=== PATIENT | male | born 1970 | race Caucasian/White ===

== ENCOUNTER 2017-09-05 12:19 | Emergency (ER) | payer OTHER ==
[2017-09-05 14:09] LABS: Protime INR 0.95
[2017-09-05] MEDS ORDERED: ONDANSETRON 4 MG/2 ML VIAL ONE (14:14)
[2017-09-05] MEDS ORDERED: FENTANYL CITR 100 MCG/2 ML ONE (14:14)
[2017-09-05] MEDS ORDERED: NA CHLORIDE 0.9% 1,000 ML ONE (14:14)
[2017-09-05 14:22] LABS: ALT/SGPT 41 U/L (12-78); AST/SGOT 23 U/L (15-37); Albumin 3.7 g/dL (3.4-5.0); Alkaline Phosphatase 101 U/L (45-117); BUN Blood Urea Nitrogen 21 mg/dL (7-18); Bicarbonate 34 mmol/L (21-32); Bilirubin Direct 0.1 mg/dL (0-0.2); Bilirubin Total 0.4 mg/dL (0.2-1.0); CKMB Creatine Kinase MB 3.3 ng/mL (0.3-3.6); Creatine Phosphokinase 163 U/L (39-308); Glucose Level 224 mg/dL (74-106); Lipase 84 U/L (73-393); NT PRO-BNP 36 pg/mL (<125); Potassium 4.2 mmol/L (3.5-5.1); Protein, Total 7.5 g/dL (6.4-8.2); Sodium Level 137 mmol/L (136-145)
--- NOTE | 2017-09-05 15:03 | RAD REPORT ---
EXAM DESCRIPTION: CT - Head C Spine Cap Octaviano Con - 09/05/2017 2:45 pm CLINICAL HISTORY: Trauma, head and neck injury. Chest, abdomen and pelvis pain. PAIN COMPARISON: No comparisons TECHNIQUE: CT head without contrast. CT cervical spine without contrast with coronal and sagittal reformatted images. CT chest, abdomen and pelvis with IV contrast (approximately 100 mL nonionic IV contrast) with hanks l and sagittal reformatted images of the spine. All CT scans are performed using dose optimization technique as appropriate and may include automated exposure control or mA/KV adjustment according to patient size. FINDINGS: CT HEAD WITHOUT CONTRAST: No intracranial hemorrhage, hydrocephalus or extra-axial fluid collection. No areas of brain edema o r midline shift. The paranasal sinuses and mastoids are clear. The calvarium is intact. CT CERVICAL SPINE WITHOUT CONTRAST: No fracture or subluxation. The prevertebral soft tissues are normal in thickness. CT CHEST, ABDOMEN, PELVIS WITH CONTRAST: The lungs are clear.No pneumothorax or pericardial/pleural fluid. No evidence of intra-abdominal visceral injury, free fluid or free air. No concerning pelvic findings. No fractures. IVC filter is noted. Hardware is present in the right acetabulum posteriorly. IMPRESSION: Negative for acute traumatic findings.
--- NOTE | 2017-09-05 15:04 | RAD REPORT ---
EXAM DESCRIPTION: RAD - Chest Single View - 09/05/2017 1:32 pm CLINICAL HISTORY: COUGH Chest pain. COMPARISON: CHEST SINGLE VIEW dated 07/13/2007 FINDINGS: Portable technique limits examination quality. The lungs are grossly clear. The heart is normal in size. No displaced fractures. IMPRESSION: No acute intrathoracic process suspected.
--- NOTE | 2017-09-05 15:10 | EDPHYS ---
Physician Documentation [facility] Name: Charlie Mobley Age: 47 yrs Sex: Male : 1970 Arrival Date: 09/05/2017 Time: 12:20 Bed 5 Private MD: Mu Sanchez ED Physician Maximus Cancino HPI: 09/05 13:06 This 47 yrs old Male presents to ER via Wheelchair with complaints of Chest ivory Pain. 13:06 The patient or guardian reports chest pain that is located primarily in the anterior ivory chest wall, left. Onset: 3 day(s) ago. The pain does not radiate. Associated signs and symptoms: The patient has no apparent associated signs or symptoms. The chest pain is described as sharp. Modifying factors: The symptoms are alleviated by the symptoms are aggravated by deep breath, movement, palpation of area, twisting torso. Severity of pain: At its worst the pain was moderate. Historical: - Allergies: 12:31 Morphine; aj1 - Home Meds: 12:31 blood pressure [Active]; diabetes pills [Active]; aj1 - PMHx: 12:31 Diabetes - NIDDM; Gout; Hypertension; aj1 - PSHx: 12:31 Knee surgery; aj1 - Immunization history:: Flu vaccine is up to date. - Social history:: Smoking status: Patient uses tobacco products, smokes one pack cigarettes per day. - Ebola Screening: : Patient denies travel to an Ebola-affected area in the 21 days before illness onset. - Family history:: not pertinent. ROS: 13:06 Constitutional: Negative for fever, chills, and weight loss, Eyes: Negative for injury, ivory pain, redness, and discharge, ENT: Negative for injury, pain, and discharge, Neck: Negative for injury, pain, and swelling, Cardiovascular: Negative for chest pain, palpitations, and edema, Abdomen/GI: Negative for abdominal pain, nausea, vomiting, diarrhea, and constipation, Back: Negative for injury and pain, : Negative for injury, bleeding, discharge, and swelling, MS/Extremity: Negative for injury and deformity, Skin: Negative for injury, rash, and discoloration, Neuro: Negative for headache, weakness, numbness, tingling, and seizure, Psych: Negative for depression, anxiety, suicide ideation, homicidal ideation, and hallucinations, Allergy/Immunology: Negative for hives, rash, and allergies, Endocrine: Negative for neck swelling, polydipsia, polyuria, polyphagia, and marked weight changes, Hematologic/Lymphatic: Negative for swollen nodes, abnormal bleeding, and unusual bruising. 13:06 Respiratory: Positive for pleurisy, of the anterior aspect of left upper chest, left lateral anterior chest, left lateral posterior chest, left nipple and left breast, shortness of breath. Exam: 13:06 Constitutional: This is a well developed, well nourished patient who is awake, alert, ivory and in no acute distress. Head/Face: Normocephalic, atraumatic. Eyes: Pupils equal round and reactive to light, extra-ocular motions intact. Lids and lashes normal. Conjunctiva and sclera are non-icteric and not injected. Cornea within normal limits. Periorbital areas with no swelling, redness, or edema. ENT: Nares patent. No nasal discharge, no septal abnormalities noted. Tympanic membranes are normal and external auditory canals are clear. Oropharynx with no redness, swelling, or masses, exudates, or evidence of obstruction, uvula midline. Mucous membranes moist. Neck: Trachea midline, no thyromegaly or masses palpated, and no cervical lymphadenopathy. Supple, full range of motion without nuchal rigidity, or vertebral point tenderness. No Meningismus. Chest/axilla: Normal chest wall appearance and motion. Nontender with no deformity. No lesions are appreciated. Cardiovascular: Regular rate and rhythm with a normal S1 and S2. No gallops, murmurs, or rubs. Normal PMI, no JVD. No pulse deficits. Abdomen/GI: Soft, non-tender, with normal bowel sounds. No distension or tympany. No guarding or rebound. No evidence of tenderness throughout. Back: No spinal tenderness. No costovertebral tenderness. Full range of motion. Male : Normal genitalia with no discharge or lesions. Skin: Warm, dry with normal turgor. Normal color with no rashes, no lesions, and no evidence of cellulitis. MS/ Extremity: Pulses equal, no cyanosis. Neurovascular intact. Full, normal range of motion. Neuro: Awake and alert, GCS 15, oriented to person, place, time, and situation. Cranial nerves II-XII grossly intact. Motor strength 5/5 in all extremities. Sensory grossly intact. Cerebellar exam normal. Normal gait. Psych: Awake, alert, with orientation to person, place and time. Behavior, mood, and affect are within normal limits. 13:06 Respiratory: the patient does not display signs of respiratory distress, Respirations: normal, Breath sounds: are clear throughout, Respiratory rate: 24 Vital Signs: 12:31 BP 122 / 69; Pulse 114; Resp 24; Pulse Ox 95% on R/A; Weight 185.52 kg (R); Height 6 aj1 ft. 3 in. (190.50 cm) (R); Pain 10/10; 12:31 Body Mass Index 51.12 (185.52 kg, 190.50 cm) aj1 MDM: 12:32 Patient medically screened. [facility] 13:06 Data reviewed: vital signs, nurses notes, lab test result(s), EKG, radiologic studies, [facility] CT scan, plain films. 09/05 13:06 Order name: Basic Metabolic Panel; Complete Time: 14:36 [facility] 09/05 13:06 Order name: CBC with Diff [facility] 09/05 13:06 Order name: Ckmb; Complete Time: 14:36 [facility] 09/05 13:06 Order name: CPK; Complete Time: 14:36 [facility] 09/05 13:06 Order name: LFT's; Complete Time: 14:36 [facility] 09/05 13:06 Order name: Magnesium; Complete Time: 14:36 ivory 09/05 13:06 Order name: NT PRO-BNP; Complete Time: 14:36 [facility] 09/05 13:06 Order name: PT-INR; Complete Time: 14:36 [facility] 09/05 13:06 Order name: Ptt, Activated; Complete Time: 14:36 [facility] 09/05 13:06 Order name: Troponin (emerg Dept Use Only); Complete Time: 14:36 [facility] 09/05 13:06 Order name: XRAY Chest (1 view); Complete Time: 15:09 [facility] 09/05 13:06 Order name: Lipase; Complete Time: 14:36 [facility] 09/05 13:06 Order name: CT Traumagram (Head C Spine CAP W Con); Complete Time: 15:09 09/05 13:33 Order name: INCENTIVE SPIROMETRY [facility] 09/05 13:06 Order name: EKG; Complete Time: 13:07 [facility] 09/05 13:06 Order name: Cardiac monitoring; Complete Time: 14:18 [facility] 09/05 13:06 Order name: EKG - Nurse/Tech; Complete Time: 14: [facility] 09/05 13:06 Order name: IV Saline Lock; Complete Time: : [facility] 09/05 13:06 Order name: Labs collected and sent; Complete Time: : [facility] 09/05 13:06 Order name: O2 Per Protocol; Complete Time: : [facility] 09/05 13:06 Order name: O2 Sat Monitoring; Complete Time: : [facility] Administered Medications: 14:17 Drug: fentaNYL (PF) 50 mcg Route: IVP; Site: right antecubital; ph 15:30 Follow up: Response: No adverse reaction ph 14:17 Drug: Zofran 4 mg Route: IVP; Site: right antecubital; ph 15:30 Follow up: Response: No adverse reaction ph 14:18 Drug: NS 0.9% 1000 ml Route: IV; Rate: 1 bolus; Site: right antecubital; ph 19:36 Follow up: Response: No adverse reaction; IV Status: Completed infusion ph Disposition: 09/05/17 15:10 Discharged to Home. Impression: Chest pain, unspecified - wall, Fall due to bumping against object, Type 2 diabetes mellitus, Obesity, unspecified. - Condition is Stable. - Discharge Instructions: Chest Wall Pain, Fall Prevention in the Home, Chest Wall Pain, [id number], Fall Prevention in the Home, Rguz-jh-Laul. - Prescriptions for Ibuprofen 600 mg Oral Tablet - take 1 tablet by ORAL route every 6 hours As needed take with food; 2 tablet. Tylenol- Codeine #3 300-30 mg Oral Tablet - take 2 tablet by ORAL route every 6 hours As needed; 30 tablet. - Medication Reconciliation Form, Thank You Letter, Antibiotic Education, Prescription Opioid Use form. - Follow up: Mu Sanchez; When: 2 - 3 days; Reason: Recheck today's complaints, Continuance of care, Re-evaluation by your physician. Follow up: Jeremiah Jones; When: 2 - 3 days; Reason: Recheck today's complaints, Continuance of care, Re-evaluation by your physician. - Problem is new. - Symptoms have improved. Signatures: Dispatcher [employer] Martine Tejada RN RN aj1 Maximus Cancino MD MD cha Hall, Patricia RN RN ph Corrections: (The following items were deleted from the chart) 15:31 15:10 09/05/2017 15:10 Discharged to Home. Impression: Chest pain, unspecified - wall; ph Fall due to bumping against object; Type 2 diabetes mellitus; Obesity, unspecified. Condition is Stable. Discharge Instructions: Chest Wall Pain, Fall Prevention in the Home, Chest Wall Pain, Cgoo-ah-Rxoy, Fall Prevention in the Home, Ejoc-th-Ucsj. Prescriptions for Ibuprofen 600 mg Oral Tablet - take 1 tablet by ORAL route every 6 hours As needed take with food; 2 tablet, Tylenol-Codeine #3 300-30 mg Oral Tablet - take 2 tablet by ORAL route every 6 hours As needed; 30 tablet. and Forms are Medication Reconciliation Form, Thank You Letter, Antibiotic Education, Prescription Opioid Use. Follow up: Mu Sanchez; When: 2 - 3 days; Reason: Recheck today's complaints, Continuance of care, Re-evaluation by your physician. Follow up: Jeremiah Jones; When: 2 - 3 days; Reason: Recheck today's complaints, Continuance of care, Re-evaluation by your physician. Problem is new. Symptoms have improved. ivory
--- NOTE | 2017-09-05 15:10 | ER ---
Nurse's Notes [facility] Name: Charlie Mobley Age: 47 yrs Sex: Male : 1970 Arrival Date: 09/05/2017 Time: 12:20 Bed 5 Private MD: Mu Sanchez Diagnosis: Chest pain, unspecified-wall;Fall due to bumping against object;Type 2 diabetes mellitus;Obesity, unspecified Presentation: 09/05 12:26 Presenting complaint: Patient states: "Friday I fell on my porch, and hit the aj1 handrail and I thought it was just some cracked ribs. I woke up this morning and I just don't feel right." Reports pain directly under left pectoral area, shortness of breath, palpitations. Transition of care: patient was not received from another setting of care. Onset of symptoms was September 03, 2017. Risk Assessment: Do you want to hurt yourself or someone else? Patient reports no desire to harm self or others. Initial Sepsis Screen: Does the patient meet any 2 criteria? RR > 20 per min. HR > 90 bpm. Yes Does the patient have a suspected source of infection? No. Patient's initial sepsis screen is negative. Care prior to arrival: None. 12:26 Method Of Arrival: Wheelchair aj1 12:26 Acuity: [place] 3 aj1 Triage Assessment: 12:31 General: Appears uncomfortable, Behavior is calm, cooperative, appropriate for age. aj1 Pain: Complains of pain in diaphragm Pain does not radiate. Pain currently is 10 out of 10 on a pain scale. Neuro: Level of Consciousness is awake, alert, obeys commands. Cardiovascular: Reports chest pain, palpitations, shortness of breath. Historical: - Allergies: 12:31 Morphine; aj1 - Home Meds: 12:31 blood pressure [Active]; diabetes pills [Active]; aj1 - PMHx: 12:31 Diabetes - NIDDM; Gout; Hypertension; aj1 - PSHx: 12:31 Knee surgery; aj1 - Immunization history:: Flu vaccine is up to date. - Social history:: Smoking status: Patient uses tobacco products, smokes one pack cigarettes per day. - Ebola Screening: : Patient denies travel to an Ebola-affected area in the 21 days before illness onset. - Family history:: not pertinent. Screenin:00 Abuse screen: Denies threats or abuse. Denies injuries from another. Nutritional ph screening: No deficits noted. Tuberculosis screening: No symptoms or risk factors identified. Fall Risk None identified. Assessment: 13:00 General: Appears in no apparent distress. uncomfortable, obese, well groomed, Behavior ph is calm, cooperative, appropriate for age. Pain: Complains of pain in left lateral anterior chest and left breast Pain began 2-3 days ago. Neuro: Level of Consciousness is awake, alert, obeys commands, Oriented to person, place, time, situation. Cardiovascular: Reports chest pain, shortness of breath, Denies nausea, syncope, vomiting. Respiratory: Reports shortness of breath at rest pain with cough pain with movement pain with respiration Airway is patent Respiratory effort is even, unlabored, Respiratory pattern is regular, symmetrical, Breath sounds are clear bilaterally. GI: No signs and/or symptoms were reported involving the gastrointestinal system. Derm: Skin is intact, is healthy with good turgor, Skin is pink, warm \\T\\ dry. Musculoskeletal: Circulation, motion, and sensation intact. Range of motion: intact in all extremities. 14:00 Reassessment: Patient appears in no apparent distress at this time. Patient and/or ph family updated on plan of care and expected duration. Pain level reassessed. Patient is alert, oriented x 3, equal unlabored respirations, skin warm/dry/pink. 15:30 Reassessment: Patient appears in no apparent distress at this time. Patient and/or ph family updated on plan of care and expected duration. Pain level reassessed. Patient is alert, oriented x 3, equal unlabored respirations, skin warm/dry/pink. Pt instructed on use of incentive spirometer and d/c home w/ family. Vital Signs: 12:31 BP 122 / 69; Pulse 114; Resp 24; Pulse Ox 95% on R/A; Weight 185.52 kg (R); Height 6 aj1 ft. 3 in. (190.50 cm) (R); Pain 10/10; 12:31 Body Mass Index 51.12 (185.52 kg, 190.50 cm) aj1 ED Course: 12:20 Patient arrived in ED. as 12:20 Mu Sanchez is Private Physician. as 12:30 Triage completed. aj1 12:31 Arm band placed on Patient placed in an exam room. aj1 12:32 Maximus Cancino MD is Attending Physician. ivory 13:00 Patient has correct armband on for positive identification. Placed in gown. Bed in low ph position. Call light in reach. Side rails up X 1. slat basket maker helper on. Pulse ox on. NIBP on. Warm blanket given. 13:00 Inserted saline lock: 20 gauge in right antecubital area, using aseptic technique. ag Blood collected. 13:29 X-ray completed. Portable x-ray completed in exam room. Patient tolerated procedure jb2 well. 13:32 XRAY Chest (1 view) In Process Unspecified. EDMS 14:03 Radiology exam delayed due to lab results not completed at this time. (BUN/Creatinine). 14:05 Belia Canales, RN is Primary Nurse. ph 14:17 Radiology exam delayed due to lab results not completed at this time. (BUN/Creatinine). nj 14:[address] via stretcher. sj 14:45 CT Traumagram (Head C Spine CAP W Con) In Process Unspecified. EDMS 15:10 Mu Sanchez is Referral Physician. ivory 15:10 Jeremiah Jones MD is Referral Physician. ivory 15:30 No provider procedures requiring assistance completed. IV discontinued, intact, ph bleeding controlled, No redness/swelling at site. Pressure dressing applied. Patient maintains SpO2 saturation greater than 95% on room air. Administered Medications: 14:17 Drug: fentaNYL (PF) 50 mcg Route: IVP; Site: right antecubital; ph 15:30 Follow up: Response: No adverse reaction ph 14:17 Drug: Zofran 4 mg Route: IVP; Site: right antecubital; ph 15:30 Follow up: Response: No adverse reaction ph 14:18 Drug: NS 0.9% 1000 ml Route: IV; Rate: 1 bolus; Site: right antecubital; ph 19:36 Follow up: Response: No adverse reaction; IV Status: Completed infusion ph Outcome: 15:10 Discharge ordered by . ivory 15:30 Discharged to home ambulatory, with family. ph 15:30 Condition: good 15:30 Discharge instructions given to patient, Instructed on discharge instructions, follow up and referral plans. medication usage, Demonstrated understanding of instructions, follow-up care, medications, Prescriptions given X 2. 15:31 Patient left the ED. ph Signatures: Dispatcher [employer] Martine Tejada, KOREY RN rosa m1 Maximus Cancino MD MD cha Buechter, Fernando Pina, Mckayla Bradley, Belia Heath, KOREY RN Reg, Olga Escobedo, Scottie sanches
[2017-09-05 15:39] VITALS: BP 122/69; O2SAT 95
[2017-09-05 16:16] LABS: Absolute Lymphocytes (CBC) 1.2 K/uL (0.7-4.9); Absolute Monocytes 0.8 K/uL (0.1-1.3); Absolute Neutrophil 5.4 K/uL (1.8-8.0); Basophils % 0.3 % (0-1.3); Eosinophils % 1.2 % (0-4.4); Hematocrit 42.2 % (39.6-49.0); Lymphocytes % 16.5 % (15.3-44.8); MCH 31.5 pg (27.0-35.0); MCV 92.6 fL (80-100); Monocytes % 10.2 % (3.3-12.3); RBC Red Blood Cell Count 4.56 M/uL (4.33-5.43)
--- NOTE | 2017-09-05 18:08 | EKG ---
Test Date: 2017-09-05 Test Time: 12:36:49 Security Services Manager: CHRISTIAN MEASUREMENT RESULTS: Intervals: Rate: 117 [place]: 176 QRSD: 156 QT: 336 QTc: 468 [place]: P: 70 NJ: 176 QRS: 97 T: 42 INTERPRETIVE STATEMENTS: Sinus tachycardia Right bundle branch block Septal infarct, age undetermined Abnormal ECG Compared to ECG 09/21/2014 16:47:27 Myocardial infarct finding now present Electronically Signed On 09-05-17 18:06:44 CDT by Charlie Doss
== END 2017-09-05 15:31 | disposition home or self-care (01) ==
LOC: ER 12:19
DX: R07.9 Chest pain, unspecified (principal); W01.198A Fall on same level from slipping, tripping and stumbling with subsequent striking against other object, initial encounter; Y93.01 Activity, walking, marching and hiking; Y92.018 Other place in single-family (private) house as the place of occurrence of the external cause; Z88.5 Allergy status to narcotic agent; F17.210 Nicotine dependence, cigarettes, uncomplicated; E11.9 Type 2 diabetes mellitus without complications; Z79.84 Long term (current) use of oral hypoglycemic drugs; I10 Essential (primary) hypertension; E66.9 Obesity, unspecified; Z68.43 Body mass index [BMI] 50.0-59.9, adult
CPT/HCPCS: 36415; 70450; 71045; 71260; 72125; 74177; 80048; 80076; 82550; 82553; 83690; 83735; 83880; 84484; 85025; 85610; 85730; 93005; 96361; 96374; 96375; 99285; J2405; J3010; J7030; Q9967

== ENCOUNTER 2018-08-11 08:42 | Day surgery (SDC) | payer OTHER ==
[2018-08-10 17:30] LABS: Absolute Lymphocytes (CBC) 2.2 K/uL (0.7-4.9); Basophils % 0.6 % (0-1.3); Eosinophils % 1.5 % (0-4.4); Hematocrit 48.1 % (39.6-49.0); Lymphocytes % 24.4 % (15.3-44.8); MPV 9.3 fL (7.6-11.3); RBC Red Blood Cell Count 5.29 M/uL (4.33-5.43)
[2018-08-10 17:43] LABS: Potassium 4.2 mmol/L (3.5-5.1)
--- NOTE | 2018-08-10 18:15 | RAD REPORT ---
EXAM DESCRIPTION: John Bess (2 Views)08/10/2018 6:03 pm CLINICAL HISTORY: Preop for cholecystectomy. Abdominal pain COMPARISON: August 2017 FINDINGS: The lungs appear clear of acute infiltrate. The heart is mildly enlarged IMPRESSION: No acute abnormalities displayed
--- NOTE | 2018-08-10 19:40 | EKG ---
Test Date: 2018-08-10 Test Time: 17:28:57 Fire Systems Inspector: [place] MEASUREMENT RESULTS: Intervals: Rate: 76 FL: 192 QRSD: 160 QT: 414 QTc: 465 [place]: P: 49 FL: 192 QRS: 118 T: 44 INTERPRETIVE STATEMENTS: Normal sinus rhythm Right bundle branch block Septal infarct, age undetermined Abnormal ECG Compared to ECG 09/05/2017 12:36:49 Sinus tachycardia no longer present Myocardial infarct finding still present Electronically Signed On 08-10-18 19:40:14 CDT by Zeeshan Frazier
[2018-08-11] MEDS ORDERED: NA CHLORIDE 0.9% 1,000 ML ONE ×2 (09:27→11:59)
[2018-08-11] MEDS ORDERED: CEFAZOLIN/SWI 1gm 1 GM/10 ML SYR ONE (09:28)
[2018-08-11] MEDS ORDERED: ROCURONIUM 50 MG/5 ML VIAL IV ONE (10:28)
[2018-08-11] MEDS ORDERED: PROPOFOL 200 MG/20 ML VIAL IV ONE (10:28)
[2018-08-11] MEDS ORDERED: GLYCOPYRROLATE 0.2 MG/ML SYR ONE (10:29)
[2018-08-11] MEDS ORDERED: LIDOCAINE 2% MPF 5 ML VIAL ONE (10:30)
[2018-08-11] MEDS ORDERED: FENTANYL CITR 250 MCG/5 ML ONE (10:30)
[2018-08-11] MEDS ORDERED: ONDANSETRON 4 MG/2 ML VIAL ONE (10:34)
[2018-08-11] MEDS ORDERED: SUCCINYLCHOLINE 20 MG/ML (10 ML) IV ONE (11:07)
[2018-08-11] MEDS ORDERED: MIDAZOLAM HCL 2 MG/2 ML INJ ONE ×2 (11:07→12:27)
[2018-08-11] MEDS ORDERED: CEFAZOLIN SODIUM 1 GM/VIAL ONE (11:45)
[2018-08-11] MEDS ORDERED: NEOSTIGMINE 1 MG/ML -10 ML VIAL ONE (12:02)
[2018-08-11] MEDS ORDERED: KETOROLAC 30 MG/ML INJ ONE (12:03)
[2018-08-11] MEDS: HYDROMORPHONE HCL 2 MG/ML inj ONE ×4 (12:40→12:55)
[2018-08-11] MEDS: HYDROMORPHONE HCL 1 MG/ML INJ ONE ×2 (13:00→13:07)
[2018-08-11] MEDS ORDERED: PROMETHAZINE 25 MG/ML VIAL ONE (13:03)
--- NOTE | 2018-08-11 20:34 | OP ---
Date of Procedure: 08/11/2018 Surgeon: Jeremiah Jones MD Preoperative Diagnoses: Umbilical hernia. Acute appendicitis. Bilateral inguinal hernias. Postoperative Diagnoses: Umbilical hernia. Acute appendicitis. Bilateral inguinal hernias. Procedures: Laparoscopic appendectomy and open repair of a tender umbilical hernia. Anesthesia: General plus local. Findings: Acute appendicitis and hernia. Indications: This is the case of a 47-year-old patient, with initial situation, he has bilateral ing uinal hernias, umbilical hernias. He said lifting something he hurt the right side and then when we did the CT scan to look for the hernias, we also found patient has appendicitis. Pros and cons discu ssed with the patient. We decided to do this in stages. We going to do today the appendix and the u mbilical hernia. Not the inguinal hernias because they may require mesh and may get contaminated wit h the appendicitis, so he understood, also the importance of losing weight, signed the consent. The benefits, alternatives, and risks of appendectomy and hernia repair fully explained to the patient, w hich include but are not limited to infection, bleeding, damage to adjacent structures, anesthesia co mplication, negative appendix, RI, and even . He also understands this may not relieve any symp toms. He might need more than one surgical intervention. He understood, signed a consent. Description Of Procedure: The patient was brought to the operating room, placed in supine position. Anesthesia was done without complication. Abdominal area was prepped and draped in a sterile fashio n. Local anesthesia was applied in the umbilical region. Incision was carried down. Hernia was fou nd with incarcerated omentum. Carefully reduced into the abdominal cavity. Hernia sac was removed. The fascial edges were opened to allow the Boom trocars to come in. We placed Vicryl #1 inside th e fascia. Boom trocar was carefully introduced. Pneumoperitoneum was obtained. We directed our a ttention to the right lower quadrant and indeed patient has inflamed appendix. Yes, he has umbilical hernia. Yes, he has small inguinal hernias but the appendix is retrocecal with some adhesions attac hed to it, not allowing dissection of that without using the help of LigaSure. So, when we put 2 mor e 5 mm in the suprapubic and left lower quadrant under direct visualization, we were able to remove t he adhesions in the right lower quadrant using a LigaSure. Then, we noticed the appendix to be infla med, partially retrocecal, so the appendix had to be mobilized. The base of the appendix seems to be spared from this inflammation, so we created a window in the base of the appendix, transected that w ith an Endo RAJAN 45 mm 3.5, and the mesoappendix with an Endo RAJAN 45 mm 2.5. Appendix removed from ab dominal cavity using an EndoCatch through umbilical incision. Irrigation was done. Hemostasis was o btained with the help of LigaSure and hemoclips. The area was irrigated until clean. No bowel leak. No bleeding. At that moment, I proceeded to remove the trocars under direct vision. Before that, we looked at the area of the inguinal region. There are some small hernias present there, but at thi s moment, there is no incarceration of any intestines. So, we removed the trocars under direct visio n. Deflated the pneumoperitoneum, closed the fascia with #1 Vicryl. Irrigated subcutaneous tissue, closed it with 3-0 chromic and the skin with bakari. Sponge count and instrument counts were correc t. The patient tolerated the procedure well. The patient was sent to recovery in stable condition. RITESH/BARRIE Voice ID: [id number] Report ID: [id number]
--- NOTE | 2018-08-11 20:37 | DS ---
Date of Discharge: 08/11/2018 Diagnoses: Acute appendicitis. Umbilical hernia. Procedures: Laparoscopic appendectomy, open repair of umbilical hernia. Disposition: Home. Discharge Instruction: Activity as tolerated. No heavy lifting. Follow up in my office in 1 week. Call for appointment [phone]. Keep area dry for 48 hours, then may shower. Medication includes Ci pro 500 p.o. q.12, Flagyl 500 p.o. q.6, and Tylenol #3 q.4 hours p.r.n. pain. The patient, whenever it is clinically possible, then he is going to have the hernias repair on the inguinal region. RITESH/BARRIE Voice ID: [id number] Report ID: [id number]
--- NOTE | 2018-08-11 22:29 | HP ---
Date of Admission: 08/11/2018 Diagnoses: Acute appendicitis, bilateral inguinal hernias, umbilical hernia. History Of Present Illness: This is a case of a 47-year-old patient, morbidly obese patient. He was lifting heavy about a week ago, developed pain of the bilateral inguinal region, also of the right i nguinal region more than the left side. He did not make anything out of bed. He got some rest, but has still pain on and off in that right side. He came to the office, had a CAT scan, found the ingui nal hernias, found the umbilical hernia, but also we found an interesting finding, which is an inflam ed appendix with a periappendiceal inflammation of the fat. He is tolerating diet. He just have rig ht in the lower quadrant, his abdomen is so big and it is hard for him to pinpoint, although almost t he pointed at the inguinal region. We discussed the case with him and the findings of the hernia, bu t also the findings of the appendix. He has an evidence of appendicitis on imaging. He still has ri ght lower quadrant area. He does not have normal picture of appendicitis, but it cannot be rule out neither. At the same time, you can also have a tumors in the appendix and abnormalities that does no t require patients to have all the symptoms of appendix. So, he was thinking about it and he decided that he is going to do some thing about the appendix first and umbilical hernia and I agree with him . At least we have to do diagnostic lap and basically take a look at that appendix since I cannot ru le it that. He wanted to do it next week if possible finding some job, but I told him that from the appendix standpoint it is difficult to wait hernias. If he does not do heavy lifting, he might do th at, but for appendix, we would like to do that as soon as possible. So, he allowed me to do that tojuan diego ay. He denies any dysuria, hematuria, hematochezia, or melena. He denies any recent traveling out o f the country. Denies any family member sick at home. No previous colonoscopy. He was advised impo rtance of losing weight and not doing heavy lifting. Past Medical History: Morbid obesity. Allergies: MORPHINE. Past Surgical History: He says he has a knee surgery and a hip surgery, although he does not remembe r exactly the details of it. Social History: He does not smoke. He does not drink alcohol. Family History: Noncontributory. Review of Systems: Ten points otherwise unremarkable. Physical Examination: General: The patient is awake and alert. HEENT: Pupils are equal and reactive, anicteric. Neck: Supple. Chest: Clear. Abdomen: Right lower quadrant tenderness, also inguinal mild tenderness. He has right lower quadran t tenderness, although he does not have any psoas signs. It is still significant. He has a large ab domen, morbidly obese. So, it is hard to pinpoint exact location. Inguinal region, you cannot feel the hernias. He is too big in that area to palpate the hernias, but the CAT scan showed them in that region. Rectal: Deferred. Genitalia: Deferred. Extremities: Good capillary refill. Neurologic: Creatinine nerves 2 through 12 grossly within normal limits. Laboratory Data: WBC count is 9 with hemoglobin of 15. Chloride is 103, potassium is 4.2, creatinin e is 0.97. CAT scan of abdomen and pelvis interpreted by Dr. Hernandez shows small bilateral inguinal hernias with incarcerated fat, also umbilical hernia with incarcerated fat and mild enlargement of t he appendix with mild stranding of the adjacent fat, suspicious for appendicitis. Assessment: A 47-year-old patient with an unusual situation. He was lifting something heavy, develo ped pain in inguinal region, developed pain in that area. When we did the work, we found also the pa tient to have appendicitis. He has right lower quadrant pain. He is pointing the lifting as the cau se of that. On the same time, we cannot rule out appendicitis like anybody else and the CAT scan joni ws that. If it is not related to bacteria, he may have a tumor in that area. It shows no abnormalit ies and warrants some investigation. He has no previous colonoscopies. So, we offered him the diagn ostic lap, appendectomy, and repair of an umbilical hernia at this time, but the inguinal hernias, we are not going to do at this time because appendix is inflamed and I believe if I fix the hernias at this moment, it may contaminate that area and may be infect the mesh, so may have to be done staging. At this moment, we have no intestines going through the hernia, so we asked him to not to do heavy lifting, so it does not get worse and we do not have an incarceration of bowel. He thought about and then after that, he gave me the consent for this procedure with benefits, alternatives, and risks in cluding, but not limited to infection, bleeding, damage to adjacent structures, anesthesia complicati on, negative appendix, NC, even . He also understands this might not relieve the symptoms, he m ight need more than one surgical intervention as we described above. It is very important for him to lose some weight and he understands that. The OR was called out and explained. RITESH/BARRIE Voice ID: [id number]
[2018-08-12 18:45] VITALS: BP 162/96; TEMP 97.1; O2SAT 92
== END 2018-08-11 14:10 | disposition home or self-care (01) ==
LOC: OR 08:42
PROVIDERS: ATTEND Surgery
PROC: 0WQF0ZZ Repair Abdominal Wall, Open Approach (ICD-10-PCS; 2018-08-11)
PROC: 0DTJ4ZZ Resection of Appendix, Percutaneous Endoscopic Approach (ICD-10-PCS; principal; 2018-08-11 11:00)
DX: K35.80 Unspecified acute appendicitis (principal); K42.9 Umbilical hernia without obstruction or gangrene; K40.20 Bilateral inguinal hernia, without obstruction or gangrene, not specified as recurrent; G47.33 Obstructive sleep apnea (adult) (pediatric); E11.9 Type 2 diabetes mellitus without complications; E66.01 Morbid (severe) obesity due to excess calories; Z68.43 Body mass index [BMI] 50.0-59.9, adult; Z88.6 Allergy status to analgesic agent; Z72.0 Tobacco use
CPT/HCPCS: 36415; 71046; 80048; 82962; 85025; 88302; 88304; 93005; J0330; J0690; J1170; J2250; J2405; J2550; J2704; J2710; J3010; J7030

== ENCOUNTER 2021-01-17 13:28 | Emergency (ER) | payer OTHER ==
--- OUTSIDE RECORDS SUMMARY | 2021-01-17 13:30 | XMS REPORT | Continuity of Care Document ---
:1970 Author Organization [facility] t Address [address] [place] [address] Care Team Providers Name Role Phone Unavailable Unavailable Unavailable Problems This patient has no known problems. Allergies, Adverse Reactions, Alerts This patient has no known allergies or adverse reactions. Medications This patient has no known medications. Procedures This patient has no known procedures. Results This patient has no known results.
[2021-01-17] MEDS ORDERED: HYDROMORPHONE HCL 1 MG/ML INJ ONE (15:37)
[2021-01-17 15:51] LABS: Urine Blood Negative (Negative); Urine Glucose Trace (Negative); Urine Protein Trace (Negative); Urine pH 6.5 (5.0-7.0)
--- NOTE | 2021-01-17 16:31 | RAD REPORT ---
EXAM DESCRIPTION: CT - Spine Lumbar Wo Con - 01/17/2021 4:09 pm CLINICAL HISTORY: Radiculopathy. LOWER BACK PAIN COMPARISON: No comparisons TECHNIQUE: Axial noncontrast CT imaging of the lumbar spine was performed with coronal and sagittal re-formatted images. All CT scans are performed using dose optimization technique as appropriate and may include automated exposure control or mA/KV adjustment according to patient size. FINDINGS: Limited due to body habitus. An IVC filter is present. No acute lumbar spine fracture seen. No aggressive marrow pattern or malalignment. Paraspinal tissues are normal in thickness. No paraspinal abscess or hematoma seen. Mild broad-based disc bulges are present at L2-3, L3-4, and L5-S1. Though limited due to CT technique, no evidence of central spinal stenosis is appreciated. At least mild neural foraminal narrowing is noted at L4-5 and L5-S1 bilaterally. Intervertebral disc disease assessment is inherently limited by CT. Within these limitations, no high -grade canal stenosis suspected. IMPRESSION: No acute fracture of the lumbar spine. Mild degenerative disc disease but which is not w ell evaluated due to CT technique and patient body habitus. Consider MRI follow-up for assessment of disc disease if clinically desired.
--- NOTE | 2021-01-17 17:35 | ER ---
Nurse's Notes [facility] Name: Charlie Mobley Age: 50 yrs Sex: Male : 1970 Arrival Date: 01/17/2021 Time: 13:32 Bed 12 Private MD: Diagnosis: Low back pain;Radiculopathy, lumbosacral region Presentation: 01/17 14:39 Chief complaint: Patient states: was pushing his kaley onto th trailer last Friday iw and hurt his back, has pain radiating from right hip down right leg and into right buttock, went to see a chiropractor and was told he needs and MRI, was not given any medications. Coronavirus screen: At this time, the client does not indicate any symptoms associated with coronavirus-19. Ebola Screen: Patient negative for fever greater than or equal to 101.5 degrees Fahrenheit, and additional compatible Ebola Virus Disease symptoms Patient denies exposure to infectious person. Patient denies travel to an Ebola-affected area in the 21 days before illness onset. No symptoms or risks identified at this time. Initial Sepsis Screen: Does the patient meet any 2 criteria? No. Patient's initial sepsis screen is negative. Does the patient have a suspected source of infection? No. Patient's initial sepsis screen is negative. Risk Assessment: Do you want to hurt yourself or someone else? Patient reports no desire to harm self or others. Onset of symptoms was January 10, 2021. 14:39 Method Of Arrival: Wheelchair iw 14:39 Acuity: [place] 3 iw Historical: - Allergies: 14:44 Morphine; iw - Home Meds: 14:44 Metformin Oral [Active]; cholesterol pills [Active]; blood pressure [Active]; iw - PMHx: 14:44 Diabetes - NIDDM; Gout; Hypertension; Hypercholesterolemia; iw - Immunization history:: Client reports having NOT received the Covid vaccine. - Social history:: Smoking status: Patient reports the use of cigarette tobacco products, smokes one pack cigarettes per day. Screenin:01 Abuse screen: Denies threats or abuse. Denies injuries from another. Nutritional ld1 screening: No deficits noted. Tuberculosis screening: No symptoms or risk factors identified. Fall Risk None identified. Assessment: 15:01 General: Appears in no apparent distress. comfortable, Behavior is calm, cooperative, ld1 appropriate for age. Pain: Complains of pain in right hip Pain radiates to right leg Pain currently is 9 out of 10 on a pain scale. Quality of pain is described as sharp, stabbing, Pain began suddenly, Is continuous. Neuro: Level of Consciousness is awake, alert, obeys commands, Oriented to person, place, time, situation, Appropriate for age. Cardiovascular: Capillary refill < 3 seconds Patient's skin is warm and dry. Respiratory: Airway is patent Respiratory effort is even, unlabored, Respiratory pattern is regular, symmetrical. GI: Abdomen is round non-distended. : No signs and/or symptoms were reported regarding the genitourinary system. EENT: No signs and/or symptoms were reported regarding the EENT system. Derm: No signs and/or symptoms reported regarding the dermatologic system. Musculoskeletal: No signs and/or symptoms reported regarding the musculoskeletal system. Vital Signs: 14:43 BP 149 / 102; Pulse 68; Resp 16; Pulse Ox 96% on R/A; Weight 181.44 kg; Height 6 ft. 3 iw in. (190.50 cm); Pain 6/10; 15:01 BP 146 / 99; Pulse 72; Resp 18; Pulse Ox 98% on R/A; Pain 8/10; ld1 16:28 BP 139 / 94; Pulse 76; Resp 18; Pulse Ox 98% on R/A; ld1 14:43 Body Mass Index 50.00 (181.44 kg, 190.50 cm) iw ED Course: 13:32 Patient arrived in ED. ds1 14:19 Yolie Cohen, RN is Primary Nurse. ld1 14:43 Triage completed. iw 14:44 Arm band placed on. iw 15:01 Patient has correct armband on for positive identification. Bed in low position. Call ld1 light in reach. Side rails up X2. Pulse ox on. NIBP on. Door closed. Noise minimized. Warm blanket given. 15:01 No provider procedures requiring assistance completed. ld1 15:17 Maximus Bee PA is PHCP. cp 15:17 Jh Crooks MD is Attending Physician. cp 15:34 Inserted saline lock: 20 gauge in left antecubital area, using aseptic technique. iw 16:10 CT Lumbar Spine Wo Con In Process Unspecified. EDMS 17:50 IV discontinued, intact, bleeding controlled, No redness/swelling at site. ld1 Administered Medications: 15:46 Not Given (Other Intervention Used): Dilaudid (HYDROmorphone) 1 mg IM once; RASS on ld1 ADMIN: Combtv4, Very Agttd3, Agttd2, Rstlss1, AlertClm0, Drwsy-1, Lt Sdtn-2, Mod Sdtn-3, Dp Sdtn-4, UnArsble-5 15:46 Drug: Dilaudid (HYDROmorphone) 1 mg Route: IVP; Site: left antecubital; ld1 15:46 Follow up: Response: No adverse reaction ld1 Outcome: 17:34 Discharge ordered by . kae 17:49 Discharged to home ambulatory. ld1 17:49 Condition: stable 17:49 Discharge instructions given to patient, family, Instructed on discharge instructions, follow up and referral plans. medication usage, Demonstrated understanding of instructions, follow-up care, medications, Prescriptions given X 3. 17:50 Patient left the ED. ld1 Signatures: Dispatcher [employer] ED[place] Kenya Montgomery ds1 Caitlyn Canada, RN RN Maximus Polo, EMANI PA cp Yolie Cohen, RN RN ld1
--- NOTE | 2021-01-17 17:35 | EDPHYS ---
Physician Documentation [facility] Name: Charlie Mobley Age: 50 yrs Sex: Male : 1970 Arrival Date: 01/17/2021 Time: 13:32 Bed 12 Private MD: ED Physician Jh Crooks HPI: 01/17 15:30 This 50 yrs old Male presents to ER via Wheelchair with complaints of Back Pain, cp Difficulty Walking. 15:30 The patient presents with pain that is acute. The symptoms are located in the low back. cp Onset: The symptoms/episode began/occurred last week. The problem was sustained started after pushing motorcycle onto trailer. 15:30 The pain radiates to the right leg and right hip. cp 15:30 Associated signs and symptoms: Pertinent positives: weakness, Pertinent negatives: cp abdominal pain, constipation, incontinence, numbness, tingling, numbness. Severity of symptoms: in the emergency department the symptoms are unchanged, despite home interventions. Historical: - Allergies: 14:44 Morphine; iw - Home Meds: 14:44 Metformin Oral [Active]; cholesterol pills [Active]; blood pressure [Active]; iw - PMHx: 14:44 Diabetes - NIDDM; Gout; Hypertension; Hypercholesterolemia; iw - Immunization history:: Client reports having NOT received the Covid vaccine. - Social history:: Smoking status: Patient reports the use of cigarette tobacco products, smokes one pack cigarettes per day. ROS: 15:35 Back: Positive for pain at rest, pain with movement, of the lumbar area and right low cp back. 15:35 Constitutional: Negative for body aches, chills, fever. cp 15:35 Abdomen/GI: Negative for nausea, vomiting, and diarrhea, constipation, bowel incontinence. 15:35 : Negative for urinary symptoms, difficulty urinating, bladder incontinence, testicular pain 15:35 MS/extremity: Positive for pain, of the right leg and right hip, Negative for paresthesias, tingling. 15:35 Neuro: Positive for weakness, of the right leg, Negative for numbness, tingling, saddle anesthesia. 15:35 Cardiovascular: Negative for chest pain. cp 15:35 Respiratory: Negative for cough, shortness of breath, wheezing. cp 15:35 All other systems are negative. Exam: 15:45 Constitutional: The patient appears in no acute distress, alert, awake, non-toxic, well cp developed, well nourished, in obvious pain, uncomfortable. 15:45 Head/Face: Normocephalic, atraumatic. cp 15:45 Neck: ROM/movement: is normal, is supple, without pain, no range of motions limitations. 15:45 Chest/axilla: Inspection: normal. 15:45 Cardiovascular: Rate: normal, Rhythm: regular. 15:45 Respiratory: the patient does not display signs of respiratory distress, Respirations: normal, no use of accessory muscles, no retractions, labored breathing, is not present. 15:45 Abdomen/GI: Inspection: abdomen appears normal, Palpation: abdomen is soft and non-tender, in all quadrants. 15:45 Back: pain, that is moderate, of the lumbar area and right low back, ROM is painful, with all movement, Straight leg raises: right lower extremity illicits pain, at 30 degrees. 15:45 Neuro: Orientation: to person, place \T\ time. Mentation: is normal, Motor: moves all fours, strength is normal, Sensation: no obvious gross deficits, Gait: is steady, Deep tendon reflexes are 2+ (normal) in the right patellar, right Achilles, left patellar and left Achilles. Vital Signs: 14:43 BP 149 / 102; Pulse 68; Resp 16; Pulse Ox 96% on R/A; Weight 181.44 kg; Height 6 ft. 3 iw in. (190.50 cm); Pain 6/10; 15:01 BP 146 / 99; Pulse 72; Resp 18; Pulse Ox 98% on R/A; Pain 8/10; ld1 16:28 BP 139 / 94; Pulse 76; Resp 18; Pulse Ox 98% on R/A; ld1 14:43 Body Mass Index 50.00 (181.44 kg, 190.50 cm) iw MDM: 15:23 Patient medically screened. cp 16:00 Differential diagnosis: sciatica, spinal stenosis, cauda equina. cp 17:33 Data reviewed: vital signs, nurses notes, lab test result(s), radiologic studies, CT cp scan. 17:33 Counseling: I had a detailed discussion with the patient and/or guardian regarding: the cp historical points, exam findings, and any diagnostic results supporting the discharge/admit diagnosis, lab results, radiology results, the need for outpatient follow up, a family practitioner, to return to the emergency department if symptoms worsen or persist or if there are any questions or concerns that arise at home. 17:33 Response to treatment: the patient's symptoms have markedly improved after treatment, cp Pain improved with meds. Discussed results of radiology studies. Will discharge to home for continued monitoring. 17:42 ED course: inquiry of [place] prescription monitor website shows patient received #180 cp hydrocodone 10-325 on 01-01-2021. 01/17 15:51 Order name: Urine Dipstick-Ancillary; Complete Time: 15:59 EDMS 01/17 15:59 Interpretation: Normal except: UPROT Trace. cp 01/17 15:24 Order name: CT Lumbar Spine Wo Con; Complete Time: 17:25 cp 01/17 15:24 Order name: Urine Dipstick-Ancillary (obtain specimen); Complete Time: 15:46 cp Administered Medications: 15:46 Not Given (Other Intervention Used): Dilaudid (HYDROmorphone) 1 mg IM once; RASS on ld1 ADMIN: Combtv4, Very Agttd3, Agttd2, Rstlss1, AlertClm0, Drwsy-1, Lt Sdtn-2, Mod Sdtn-3, Dp Sdtn-4, UnArsble-5 15:46 Drug: Dilaudid (HYDROmorphone) 1 mg Route: IVP; Site: left antecubital; ld1 15:46 Follow up: Response: No adverse reaction ld1 Disposition: 17:45 Chart complete. cp 22:29 Co-signature as Attending Physician, Jh Crooks MD I agree with the assessment and sp3 plan of care. Disposition Summary: 01/17/21 17:34 Discharge Ordered Location: Home cp Problem: new cp Symptoms: have improved cp Condition: Stable cp Diagnosis - Low back pain cp - Radiculopathy, lumbosacral region cp Followup: cp - With: Private Physician - When: 2 - 3 days - Reason: Recheck today's complaints Discharge Instructions: - Discharge Summary Sheet cp - Acute Back Pain, Adult cp - Lumbosacral Radiculopathy cp - Back Exercises cp Forms: - Medication Reconciliation Form cp - Thank You Letter cp - Antibiotic Education cp - Prescription Opioid Use cp Prescriptions: - Lidoderm 5 % Topical adhesive patch,medicated - apply 1 patch by TOPICAL route once daily; 1 box; Refills: 0, Product Selection cp Permitted - Cyclobenzaprine 10 mg Oral Tablet - take 1 tablet by ORAL route every 8 hours As needed; 20 tablet; Refills: 0, cp Product Selection Permitted - Medrol (Lucian) 4 mg Oral Tablets, Dose Pack - take 1 tablet by ORAL route as directed - follow package instructions; 1 cp packet; Refills: 0, Product Selection Permitted Signatures: Dispatcher [employer] Caitlyn Ibarra RN RN Maximus Polo PA PA cp Yolie Cohen RN RN ld1 Jh Crooks MD MD sp3 Corrections: (The following items were deleted from the chart) 01/18 17:46 01/17 15:35 All other systems are negative, cp cp
[2021-01-17 18:04] VITALS: O2SAT 98
[2021-01-17 18:06] VITALS: BP 139/94
== END 2021-01-17 17:50 | disposition home or self-care (01) ==
LOC: ER 13:28
DX: M54.17 Radiculopathy, lumbosacral region (principal); I10 Essential (primary) hypertension; E11.9 Type 2 diabetes mellitus without complications; F17.210 Nicotine dependence, cigarettes, uncomplicated; Z88.5 Allergy status to narcotic agent
CPT/HCPCS: 81003; 72131; 96374; 99284; J1170